=== PATIENT | male | born 1955 | race African-American/Black ===

== ENCOUNTER → 2016-07-24 | Outpatient (CLI) | payer BC ==
[~2016-07-24] MED LIST: COREG12.5 M1 PO; HYDRALAZINE HCL50 MG PO; HYDROCODONE-APA1 T54 PO; LASIX PO; LOTREL 10/20 CA1 CAP PO; NORVASC10 MG PO; PACERONE100 MG PO; POTASSIUM CHLO20 ME1 PO; PRADAXA150 MG PO; PREDNISONE10 MG/DOSE PO; ZESTRIL10 M1 PO; ZYLOPRIM100 MG PO
[2016-07-24 13:42] LABS: BASOPHIL# 0.2 X10e3 (0-0.3); BASOPHIL% 1.6 % (0-2.5); EOSINOPHIL# 0.6 X10e3 (0-0.7); EOSINOPHIL% 4.7 % (0.0-7.0); HEMOGLOBIN 16.9 gm/dL (13.0-16.0); LYMPHOCYTE# 2.5 X10e3 (1.0-3.5); LYMPHOCYTE% 18.7 % (17.0-45.0); MEAN CELL VOLUME 85.5 FL (83-96); MEAN CORPUSCULAR HEMOGLOBIN 28.3 PG (28-34); MEAN CORPUSCULAR HGB CONC 33.2 g/dL (30-36); MEAN PLATELET VOLUME 8.6 FL (6.5-11.5); MONOCYTE# 1.2 X10e3 (0-1.0); MONOCYTE% 9.2 % (3.0-12.0); NEUTROPHIL# 8.9 X10e3 (1.5-7.1); NEUTROPHIL% 65.8 % (40-75); RED BLOOD COUNT 5.96 X10e (3.90-5.60); RED CELL DISTRIBUTION WIDTH 17.3 % (11.0-15.5); WHITE BLOOD COUNT 13.5 X10e3 (4.0-10.5)
[2016-07-24 14:02] LABS: DIFF IND NO; PLATELET COUNT 672 X10e3 (140-420)
[2016-07-24 14:18] LABS: ALKALINE PHOSPHATASE 123 U/L (32-92); ALT (SGPT) 32 U/L (10-40); AST (SGOT) 24 U/L (10-42); BILIRUBIN,TOTAL 0.6 mg/dL (0.2-2.0); BLOOD UREA NITROGEN 23 mg/dL (9-23); BUN/CREATININE RATIO 19.16; CALCIUM SERUM 9.3 mg/dL (8.4-10.2); CARBON DIOXIDE 25 mmol/L (22-31); CHLORIDE 107 mmol/L (100-111); CREATININE SERUM 1.2 mg/dL (0.6-1.4); GLOM FILT RATE Estimated ABOVE60 mL/min (>60); GLUCOSE FASTING 79 mg/dL (70-110); POTASSIUM 4.7 mmol/L (3.5-5.1); PROTEIN TOTAL SERUM 6.4 g/dL (6.0-8.3); SODIUM 134 mmol/L (135-145)
== END | disposition home or self-care (01) ==
LOC: CLAB 12:57
PROVIDERS: Internal Medicine Nephrology
DX: N18.2 Chronic kidney disease, stage 2 (mild) (principal)
CPT/HCPCS: 36415; 80053; 85025

== ENCOUNTER → 2016-07-27 | Outpatient (CLI) | payer BC ==
[2016-07-27 18:14] LABS: URINE CREATININE 166.4 mg/dL
[2016-07-27 18:15] LABS: U PROTIEN QUANT CALCULATION 3.54 GM/24H (0.10-0.15); URINE 24 HOUR CREATININE CALC 2.9 G/24HR (0.7-2.0)
== END | disposition home or self-care (01) ==
LOC: CLAB 17:15
PROVIDERS: Internal Medicine Nephrology
DX: N18.2 Chronic kidney disease, stage 2 (mild) (principal)
CPT/HCPCS: 82570; 84156

== ENCOUNTER → 2016-10-02 | Outpatient (CLI) | payer BC ==
[2016-10-02 17:24] LABS: BASOPHIL# 0.2 X10e3 (0-0.3); BASOPHIL% 1.1 % (0-2.5); EOSINOPHIL# 0.9 X10e3 (0-0.7); EOSINOPHIL% 6.1 % (0.0-7.0); HEMATOCRIT 53.4 % (38.0-50.0); LYMPHOCYTE# 3.3 X10e3 (1.0-3.5); LYMPHOCYTE% 21.8 % (17.0-45.0); MEAN CELL VOLUME 87.3 FL (83-96); MEAN CORPUSCULAR HEMOGLOBIN 27.7 PG (28-34); MEAN CORPUSCULAR HGB CONC 31.7 g/dL (30-36); MEAN PLATELET VOLUME 8.5 FL (6.5-11.5); MONOCYTE# 1.7 X10e3 (0-1.0); MONOCYTE% 11.2 % (3.0-12.0); NEUTROPHIL# 8.9 X10e3 (1.5-7.1); NEUTROPHIL% 59.8 % (40-75); PLATELET COUNT 653 X10e3 (140-420); RED BLOOD COUNT 6.12 X10e (3.90-5.60); RED CELL DISTRIBUTION WIDTH 17.4 % (11.0-15.5)
[2016-10-02 17:24] LABS: URINE APPEARANCE CLEAR; URINE BILIRUBIN NEG (NEG); URINE BLOOD NEG (NEG); URINE COLOR YELLOW; URINE GLUCOSE NEG (NEG); URINE KETONE TRACE (NEG); URINE LEUKOCYTE ESTERASE NEG (NEG); URINE NITRATE NEG (NEG); URINE PH 5.5 (5-8); URINE PROTEIN 3+ (NEG); URINE SPECIFIC GRAVITY 1.028 (1.003-1.035)
[2016-10-02 17:26] LABS: URBCS1 AUWI 0-2 /[HPF] (0-2); URINE BACTERIA AUWI NEG (NEGATIVE); URINE SQUAMOUS EPITHELIAL CELL NONE SEEN /[HPF]
[2016-10-02 17:40] LABS: DIFF IND YES
[2016-10-02 17:42] LABS: NUCLEATED RED BLOOD CELL 1 /100 (0)
[2016-10-02 17:43] LABS: ANISOCYTOSIS MOD; BURR CELLS PRESENT; POIKILOCYTOSIS MOD
[2016-10-02 17:44] LABS: PLATELET ESTIMATE INCREASED (NORMAL)
[2016-10-02 17:45] LABS: ACANTHOCYTES PRESENT; SCHISTOCYTES PRESENT
[2016-10-02 17:46] LABS: ELLIPTOCYTES PRESENT
[2016-10-02 17:48] LABS: HOWELL-JOLLY BODIES PRESENT
[2016-10-02 17:50] LABS: BILIRUBIN,TOTAL 0.8 mg/dL (0.2-2.0); BUN/CREATININE RATIO 14.37; CALCIUM SERUM 9.2 mg/dL (8.4-10.2); CREATININE SERUM 1.6 mg/dL (0.6-1.4); GLOM FILT RATE Estimated 53.5 mL/min (>60); POTASSIUM 4.1 mmol/L (3.5-5.1); PROTEIN TOTAL SERUM 6.8 g/dL (6.0-8.3)
[2016-10-02 18:16] LABS: CREATININE,RANDOM URINE 238 mg/dL; TOTAL PROTEIN,RANDOM URINE 303 mg/dl (<10)
== END | disposition home or self-care (01) ==
LOC: CLAB 17:03
PROVIDERS: Internal Medicine Nephrology
DX: N18.2 Chronic kidney disease, stage 2 (mild) (principal)
CPT/HCPCS: 36415; 80053; 81003; 82570; 84156; 85025